=== PATIENT | female | born 1955 | race Caucasian/White ===

== ENCOUNTER 2018-04-15 18:32 | Emergency (ER) | payer MEDICAID, SELFPAY ==
[2018-04-15 18:32] VITALS: BP 157/84; PULSE 81; RESP 20; TEMP 36.2; O2SAT 93; BMI 22.7
[2018-04-15 18:49] VITALS: O2SAT 91
--- NOTE | 2018-04-15 19:29 | ED.VISSUMM ---
- ER Visit Summary Date of Service: 04/15/18 Chief Complaint: Cough and congestion History of Present Illness: The patient is a 62 F who presents with cough and congestion that has been getting worse over the past week. Patient states she has been having some rhinorrhea and coughing up some clear sputum. Patient denies any fevers. Patient denies any chest pain shortness of breath. Patient admits to a headache and sinus pressure. Patient denies any nausea or vomiting. Patient states her rhinorrhea has been clear as well. Physical Examination: Vital signs are stable. Patient is afebrile. Patient is in no acute distress. Pupils are equal, round, and reactive to light bilaterally. Extraocular muscles are intact. Nasal mucosa is congested. Tympanic membranes are clear bilaterally. Oropharynx is clear. Airway is patent. Neck is supple. Trachea is midline. There is no JVD noted. There is no lymphadenopathy noted. Heart was regular rate and rhythm. Lungs showed some expiratory wheezing. There is good respiratory effort noted. Cranial nerves II through XII are intact. There are no focal motor or sensory deficits noted. Emergency Department Course and Treatment: Patient with given a DuoNeb aerosol here. Patient was given prescriptions for Claritin and Flonase. Patient is also given a prescription for albuterol inhaler. Patient was instructed to follow-up with her primary care physician in 5-7 days. Patient understood and was agreeable with the plan. All questions were answered. Disposition: Discharge home Impression: Viral upper respiratory infection This note was generated with Smart [employer] dictation software. It may contain incorrect words, spelling, and punctuation that were not noted in review of the chart prior to signing ED Disposition - Plan for ED Patient: Disposition: Home or Assisted Living Chief Complaint: Cold Sx Diagnosis: Upper respiratory infection, viral Instructions: ED Upper Resp Infec No Abx Tx Prescriptions: Albuterol Inhaler [Ventolin Hfa] 1 - 2 puff INHALATION Q4H PRN PRN #1 inhaler PRN Reason: Wheezing Fluticasone 0.05% [Flonase Nasal [place]] 1 spray NASAL DAILY 10 Days #1 bottle Loratadine [Claritin] 10 mg PO DAILY #10 tab Referrals: Ernesto Renner [Primary Care Provider] -
--- NOTE | 2018-04-15 19:35 | ED.DCSUM_ITS ---
- ER Visit Summary Date of Service: 04/15/18 Chief Complaint: Cough and congestion History of Present Illness: The patient is a 62 F who presents with cough and congestion that has been getting worse over the past week. Patient states she has been having some rhinorrhea and coughing up some clear sputum. Patient denies any fevers. Patient denies any chest pain shortness of breath. Patient admits to a headache and sinus pressure. Patient denies any nausea or vomiting. Patient states her rhinorrhea has been clear as well. Physical Examination: Vital signs are stable. Patient is afebrile. Patient is in no acute distress. Pupils are equal, round, and reactive to light bila terally. Extraocular muscles are intact. Nasal mucosa is congested. Tympanic membranes are clear bilaterally. Oropharynx is clear. Airway is patent. Neck is supple. Trachea is midline. There is no JVD noted. There is no lymphadenopathy noted. Heart was regular rate and rhythm. Lungs showed some expiratory wheezing. There is good respiratory effort noted. Cranial nerves II through XII are intact. There are no focal motor or sensory deficits noted. Emergency Department Course and Treatment: Patient with given a DuoNeb aerosol here. Patient was given prescriptions for Claritin and Flonase. Patient is also given a prescription for albuterol inhaler. Patient was instructed to follow-up with her primary care physician in 5-7 days. Patient understood and was agreeable with the plan. All questions were answered. Disposition: Discharge home Impression: Viral upper respiratory infection This note was generated with LookMed[employer] dictation software. It may contain incorrect words, spelling, and punctuation that were not noted in review of the chart prior to signing ED Disposition - Plan for ED Patient: Disposition: Home or Assisted Living Chief Complaint: Cold Sx Diagnosis: Upper respiratory infection, viral Instructions: ED Upper Resp Infec No Abx Tx Prescriptions: Albuterol Inhaler [Ventolin Hfa] 1 - 2 puff INHALATION Q4H PRN PRN #1 inhaler PRN Reason: Wheezing Fluticasone 0.05% [Flonase Nasal [place]] 1 spray NASAL DAILY 10 Days #1 bottle Loratadine [Claritin] 10 mg PO DAILY #10 tab Referrals: Ernesto Renner [Primary Care Provider] -
[2018-04-15 19:40] VITALS: PULSE 73; RESP 16
[2018-04-15] MEDS: Ipratropium/Albuterol Sulfate 3 ML AMPUL.NEB INHALATION (19:40)
[2018-04-15 19:54] VITALS: PULSE 75; RESP 20; O2SAT 93
--- OUTSIDE RECORDS SUMMARY | 2018-07-19 12:25 | XMS RPT_ITS ---
:1955 Author Organization [facility] Care Team Providers Name Role Phone Ernesto Renner Attending Unavailable UNKNOWN, PROVIDER Referring Unavailable Ernesto Renner Primary Care Unavailable Arnold Knott Attending Unavailable ERNESTO RENNER Primary Care Unavailable PROBLEMS PROBLEMS No Problem Records FoundPROCEDURES PROCEDURES No Procedure Records FoundRESULTS RESULTS [facility] Observed: 04/26/2018 Status: COMPLETED Source: [facility] [facility] 12:00 AM [facility] REPOSITORY Letter Text Moisés Garcia MD [address] [place] [address] Date: 04/26/2018 Provider: Moisés Garcia MD Dear Andrew, We have received a referral from your Primary Care Physician requesting us to contact you to schedule a Screening Colonoscopy for prevention and early detection of colon cancer. Our office has tried to contact you without success. Colon Cancer is the third leading cause of cancer related deaths. One hundred fifty thousand Americans are diagnosed with colon cancer annually, and this condition is responsible for 50,000 deaths per year. Hence, this disease has significant mortality and health consequences. Colonoscopy is an easy and safe test to remove pre-cancerous growth (polyps) from the colon, preventing and detecting colon cancer at an early stage thus improving survival. Most insurances pay for Colonoscopy without any out pocket expense to the patient. Colonoscopy is performed under deep sedation with the help of an anesthesia professional with zero pain/discomfort during the procedure. We urge you to please call our office at [phone], option 5 and we will assist you in scheduling your exam. Sincerely, Moisés Garcia MD EMERGENCY DEPARTMENT Observed: 04/15/2018 Status: F Source: [place] SUMMARY 7:35 PM [facility] REPOSITORY [facility] Medical Records Department [address] [place] [address] Emergency Department Summary 04/15/181928 MR#: [id number] Acct: [id number] Name: ANDREW LAM Rep #: [id number] : 1955 62 From: Arnold Knott DO PCP: Ernesto Renner DO Status: REG ER - ER Visit Summary Date of Service: 04/15/18 Chief Complaint: Cough and congestion History of Present Illness: The patient is a 62 F who presents with cough and congestion that has been getting worse over the past week. Patient states she has been having some rhinorrhea and coughing up some clear sputum. Patient denies any fevers. Patient denies any chest pain shortness of breath. Patient admits to a headache and sinus pressure. Patient denies any nausea or vomiting. Patient states her rhinorrhea has been clear as well. Physical Examination: Vital signs are stable. Patient is afebrile. Patient is in no acute distress. Pupils are equal, round, and reactive to light bilaterally. Extraocular muscles are intact. Nasal mucosa is congested. Tympanic membranes are clear bilaterally. Oropharynx is clear. Airway is patent. Neck is supple. Trachea is midline. There is no JVD noted. There is no lymphadenopathy noted. Heart was regular rate and rhythm. Lungs showed some expiratory wheezing. There is good respiratory effort noted. Cranial nerves II through XII are intact. There are no focal motor or sensory deficits noted. Emergency Department Course and Treatment: Patient with given a DuoNeb aerosol here. Patient was given prescriptions for Claritin and Flonase. Patient is also given a prescription for albuterol inhaler. Patient was instructed to follow-up with her primary care physician in 5-7 days. Patient understood and was agreeable with the plan. All questions were answered. Disposition: Discharge home Impression: Viral upper respiratory infection This note was generated with Exuru!ation software. It may contain incorrect words, spelling, and punctuation that were not noted in review of the chart prior to signing ED Disposition - Plan for ED Patient: Disposition: Home or Assisted Living Chief Complaint: Cold Sx Diagnosis: Upper respiratory infection, viral Instructions: ED Upper Resp Infec No Abx Tx Prescriptions: Albuterol Inhaler [Ventolin Hfa] 1 - 2 puff INHALATION Q4H PRN PRN #1 inhaler PRN Reason: Wheezing Fluticasone 0.05% [Flonase Nasal [place]] 1 spray NASAL DAILY 10 Days #1 bottle Loratadine [Claritin] 10 mg PO DAILY #10 tab Referrals: Ernesto Renner [Primary Care Provider] - What to do if you have Problems For any increased pain, shortness of breath, bleeding, nausea or vomiting, chest pain, or any unexpected problems, contact your Primary Care Provider. Call [facility] ([phone]) or report to the closest Emergency Room. Call 911 if necessary. 04/15/181934 <Electronically signed by Arnold Knott DO> Date Arnold Knott DO Cosigner Signature (If Indicated): Date CC: Ernesto Renner DO ALLERGIES ALLERGIES DATE TYPE / CODE NAME / CODE REACTION SEVERITY SOURCE 04/15/2018 Drug morphine/F00 Vomiting Unknown [facility] Allergy/4160 [id number]([facility] [address]391(SNOMED ) Repository CT) ENCOUNTERS ENCOUNTERS ADMIT/DISCHARGE ACCOUNT NUMBER ADMITTING ENCOUNTER LOCATION SOURCE CLASS 05/17/2018 [id number] Ambulatory [facility] [employer] Repository 04/15/2018/04/15/20 [id number] Emergency [address] ding:ED Repository PAYERS PAYERS ENCOUNTER GUARANTOR PAYER SUBSCRIBER SOURCE 05/17/2018 Andrew OttOB: Primary Andrew OttOB: Dwllr [id number] Insurance:[place] [id number] [place] Number: Effective [id number]: (330) Date: () 04/15/2018 ANDREW Hicks Primary Insurance:[facility] ANDREW Weber [id number] [facility] CYRUSDOB: Community [facility] Number: [id number], [place] [id number] Repository [id number]: (330) Date:[id number] [phone] () [address] [place] [address] [id number]: 04/15/2018 Secondary NOT GIVENOPAL Weber Insurance:SELF PAY [facility] Number: Effective Repository Date:2018-04-15
== END 2018-04-15 19:54 | disposition home or self-care (01) ==
PROVIDERS: Emergency Provider Emergency Medicine; Family Provider Family Medicine; PCP Family Medicine
DX: J06.9 Acute upper respiratory infection, unspecified (principal); F17.210 Nicotine dependence, cigarettes, uncomplicated
CPT/HCPCS: 94640; 99282

== ENCOUNTER → 2020-03-24 | Outpatient (CLI) | payer OTHER, SELFPAY | END | disposition home or self-care (01) | PROVIDERS: PCP Family Medicine; Referring Provider Family Medicine; Visit Provider Family Medicine | DX: Z20.828 Contact with and (suspected) exposure to other viral communicable diseases (principal); R05 Cough | CPT/HCPCS: 87635; C9803; U0003 ==

== ENCOUNTER → 2023-05-27 | Outpatient (CLI) | payer MEDICARE, MEDICAID, SELFPAY ==
--- NOTE | 2023-05-27 09:55 | US_ITS ---
STUDY: SUPERFICIAL ULTRASOUND - ASCITES ASSESSMENT. REASON FOR EXAM: Female, 67 years old. Malignant neoplasm of sigmoid colon ASCITES TECHNIQUE: A superficial ultrasound was performed with real-time and static medina-scale imaging. COMPARISON: None. FINDINGS: The 4 quadrants of the abdomen was assessed. Not enough free fluid for safe paracentesis. US/Abdomen Limited IMPRESSION: Not enough free fluid for safe paracentesis. Electronically Signed: Anil López MD at 14:24 EST ,
--- NOTE | 2023-05-27 11:46 | PCM.OP.PRO ---
Procedure Report Date of Procedure: 05/27/23 Assessment & Plan Assessment/Plan (1) Malignant neoplasm of sigmoid colon: (2) Ascites, malignant: PLAN: PROCEDURE: Ultrasound guided paracentesis ORDERING PROVIDER: Dr. Silvestre INDICATION: Female, 67 years old. Malignant ascites. PROVIDER: JOSE Moss TECHNIQUE: The risks, benefits, and alternatives to the procedure were explained to the patient. The specific risks of bleeding, infection, and damage to bowel were detailed and accepted. Witnessed informed consent was obtained. The abdomen was ultrasonographically surveyed. A small pocket was identified in the right lower quadrant. The skin was prepped with chlorhexidine and sterile field established. 2% lidocaine was used for local anesthetic using ultrasound guidance. The patient tolerated this well. While injecting the local anesthetic, the small pocket previously identified had significant fluctuations with bowel interfering with the safety of accessing this pocket. It was determined that it would be unsafe to attempt the insertion of the paracentesis needle/catheter system. This was explained to the patient, and she was understanding. A Band-Aid was applied to the site of injection of the local anesthetic. The study will be submitted for a limited abdomen read. IMPRESSION: Unsuccessful ultrasound-guided paracentesis, due to limited fluid.
== END | disposition home or self-care (01) ==
PROVIDERS: PCP Family Medicine; Referring Provider Internal Medicine Hematology & Oncology; Visit Provider Internal Medicine Hematology & Oncology
DX: C18.7 Malignant neoplasm of sigmoid colon (principal); R18.8 Other ascites
CPT/HCPCS: 76705